=== PATIENT | female | born 1950 | race Caucasian/White ===

== ENCOUNTER → 2016-05-14 | Outpatient (CLI) | payer OTHER ==
[~2016-05-14] MED LIST: ALBUAER INH; ASPI81TA28 PO; CALC200T PO; CHOL100010 PO; CYAN3INJ SQ; CYCL0.05 OP; FEXO1TAB45 PO; FLUO0.1S12 OPB; FSMD/70 PO; GABA-112 PO; KETO0.0216 OP; OMEP40CA PO; POLY1DRO2 OPB; SUMA50TA15 PO
[2016-05-14 13:12] LABS: BASO % 0.2 %; BASO ABS # 0.02 K/uL (0-0.2); COMPLETE YES; EOS % 2.2 %; HEMATOCRIT 38.5 % (37-47); IG% 0.1 %; LYMPH % 19.6 %; LYMPH ABS # 1.59 K/uL (1.2-3.4); MEAN CELL VOLUME 87.9 fL (80-100); MEAN CORPUSCULAR HEMOGLOBIN 29.9 pg (25-34); MEAN PLATELET VOLUME 10.4 fL (7.4-10.4); MONO % 9.1 %; NEUT % 68.8 %; PLATELET COUNT 343 K/uL (130-400); RED BLOOD COUNT 4.38 M/uL (4.2-5.4)
[2016-05-14 13:53] LABS: BLOOD UREA NITROGEN 14 mg/dl (7-18); BUN/CREATININE RATIO 22.2 (10-20); CALCIUM 9.2 mg/dl (8.5-10.1); CARBON DIOXIDE 27 mmol/L (21-32); CHLORIDE 105 mmol/L (98-107); CREATININE 0.64 mg/dl (0.60-1.20); GLUCOSE 89 mg/dl (70-99); POTASSIUM 4.1 mmol/L (3.5-5.1); SODIUM 140 mmol/L (136-145)
[2016-05-14 13:58] LABS: ALB/GLOB RATIO 1.7 (0.9-2); ALKALINE PHOSPHATASE 65 U/L (45-117); ALT/SGPT 24 U/L (12-78); AST/SGOT 12 U/L (15-37); CHOLESTEROL 157 mg/dl (0-200); CHOLESTEROL/HDL RATIO 3.1; HDL CHOLESTEROL 51 mg/dl; LDL CHOLESTEROL CALCULATED 92 mg/dl; TRIGLYCERIDES 70 mg/dl (0-150); VERY LOW DENSITY LIPOPROT CALC 14 mg/dl
== END | disposition home or self-care (01) ==
LOC: C.LABMFLN 11:44
PROVIDERS: ATTEND Family Medicine
DX: I63.9 Cerebral infarction, unspecified (principal); I10 Essential (primary) hypertension